=== PATIENT | female | born 1990 | race African-American/Black ===

== ENCOUNTER 2016-10-25 22:17 | Emergency (ER) | payer SELFPAY ==
[~2016-10-25] VITALS: Ht 165.1 cm; Wt 84.5 kg
[~2016-10-25 22:17] MED LIST: FLAGYL500 MG PO; MOTRIN IB200 MG PO
[2016-10-26 02:32] VITALS: BP 108/69
== END 2016-10-26 02:32 | disposition home or self-care (01) ==
LOC: EME 22:17
DX: M79.604 Pain in right leg (principal); R06.01 Orthopnea; D64.9 Anemia, unspecified
CPT/HCPCS: 71020; 93971; 99281; 99283